=== PATIENT | male | born 1990 | race Caucasian/White ===

== ENCOUNTER 2018-12-27 16:24 | Emergency (ER) | payer MEDICAID ==
[~2018-12-27] VITALS: Ht 167.6 cm; Wt 70.4 kg
[~2018-12-27 16:24] MED LIST: NAPR-985 PO
[2018-12-27 16:33] VITALS: Ht 167.6 cm; Wt 70.4 kg
[2018-12-27] MEDS ORDERED: IBUPROFEN 600 MG TAB PO ONE (17:30)
[2018-12-27 18:23] VITALS: BP 115/66; PULSE 70; RESP 18
== END 2018-12-27 18:24 | disposition home or self-care (01) ==
LOC: FTE 16:24
DX: G56.01 Carpal tunnel syndrome, right upper limb (principal)
CPT/HCPCS: 29125; Z7502; Z7610